=== PATIENT | male | born 1970 | race Caucasian/White ===

== ENCOUNTER → 2020-10-24 | Outpatient (CLI) | payer OTHER, MEDICAID ==
--- NOTE | 2020-10-24 14:10 | RAD ---
EXAM: Dual modality PET-CT Scan DATE: 10/24/2020 RADIOPHARMACEUTICAL: 17 mCi F-18 fluorodeoxyglucose (FDG) IV. CLINICAL HISTORY: Pulmonary nodule. Prostate cancer. COMPARISON: There are no comparison images available. TECHNIQUE: Approximately 45 minutes after tracer administration, routine, attenuation-corrected Posit jennifer Emission Tomography (PET) images were obtained from the level of the base of the skull through th e level of the mid thighs. Tomographic reconstructions are reviewed in coronal, transaxial and sagitt al planes. Non-contrast CT imaging was performed for attenuation correction and localization purpose s only. These images do not constitute a diagnostic-quality CT examination and were not used to diag nose disease independently of the PET images. The blood glucose level was 111 mg/dL at the time of FDG administration. *One or more of the following individualized dose reduction techniques were utilized for this examina tion: 1. Automated exposure control. 2. Adjustment of the mA and/or kV according to patient size. 3. Use of iterative reconstruction technique. FINDINGS: There is no abnormal radiotracer activity above the blood pole associated with subcentimete r right side pulmonary nodules demonstrated on the CT portion of the exam. There is symmetric increas ed radiotracer activity involving the tonsillar soft tissues and focal cords which is likely physiolo gic. There is also physiologic activity involving the bowel and renal clicking system and suspected d egenerative activity involving spine. There is mild radiotracer activity within SUV of 1.9 associated with a malunited anterior right third rib fracture. This does not appear to be pathologic. The CT portion of the exam is limited due to significant respiratory motion. There is a 6 mm nodule w ithin the right upper lobe. There is a 9 mm nodule within the lateral right lower lobe. Evaluation fo r small lesions is limited due to aforementioned motion. There is emphysema with biapical subpleural bleb formation and pleural parenchymal scarring. The heart is normal in size. There are nonspecific mediastinal lymph nodes. These are not pathologica lly enlarged. No hilar lymphadenopathy is seen. There is a tiny hypodense lesion within the inferior left hepatic lobe measuring 6 mm. The gallbladder, pancreas, spleen, adrenal glands and kidneys are u nremarkable. The appendix is unremarkable. There is colonic diverticulosis. There is circumferential wall thickening involving the proximal sigm oid:. The absence of significant surrounding fatty stranding favors changes due to peristalsis or the sequela of chronic inflammation rather than acute colitis or diverticulitis. There is bladder wall t hickening. There is an ectatic infrarenal abdominal aorta measuring 2.8 cm. There is an IVC filter. The prostate is absent. There is internal fixation of the proximal left femur. There is degenerative change involving the spine. No suspicious osseous lesion is seen. There are multiple healed rib fract ures. There is a left maxillary sinus mucous retention cyst and right frontal sinus predominant mucosal thi ckening involving the paranasal sinuses. There is a small amount of mastoid fluid. The visualized bra in are unremarkable. There is no neck lymphadenopathy. IMPRESSION: 1. No evidence of a suspicious radiotracer avid pulmonary nodule. The CT portion of the exam is signi ficantly limited due to respiratory motion. There are 6 mm and 9 mm nodules within the right upper an d lower lobes which do not demonstrate significant radiotracer activity. However, these may be too sm all to characterize with PET. Continued short-term CT follow-up is recommended. There is no prior eve dy to assess for interval change at the time of dictation. 2. No additional convincing evidence of malignancy. 3. Colonic diverticulosis. There is circumferential wall thickening involving the proximal sigmoid co manasa which may be due to peristalsis or the sequela of chronic inflammation. There is no convincing flaherty rrounding inflammatory change to suggest acute colitis or diverticulitis. Correlate with symptomatolo gy. 4. Please refer to the above report for additional findings regarding the non-PET portion of the exam . Electronically signed by: Kellie Henriquze MD (10/24/2020 2:08 PM) [id number]
== END ==
LOC: PETSC 10:16
PROVIDERS: ATTEND Physician Assistant
DX: R91.8 Other nonspecific abnormal finding of lung field (principal); K57.30 Diverticulosis of large intestine without perforation or abscess without bleeding; J43.9 Emphysema, unspecified; R19.2 Visible peristalsis; I77.811 Abdominal aortic ectasia; J32.0 Chronic maxillary sinusitis; J34.89 Other specified disorders of nose and nasal sinuses; M47.819 Spondylosis without myelopathy or radiculopathy, site unspecified; Z96.698 Presence of other orthopedic joint implants; Z90.79 Acquired absence of other genital organ(s)
CPT/HCPCS: 78816; A9552